=== PATIENT | female | born 1995 | race Caucasian/White ===

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

== ENCOUNTER 2020-09-06 22:55 | Emergency (ER) | payer OTHER ==
[~2020-09-06] VITALS: Ht 170.2 cm; Wt 74.5 kg
[~2020-09-06 22:55] MED LIST: QUET100T PO
[2020-09-07] MEDS ORDERED: AZITHROMYCIN 500 MG TABLET PO ONE (00:30)
[2020-09-07 00:46] VITALS: BP 132/88
== END 2020-09-07 00:47 | disposition home or self-care (01) ==
LOC: EMS 22:59
DX: N89.8 Other specified noninflammatory disorders of vagina (principal); F17.210 Nicotine dependence, cigarettes, uncomplicated; F11.90 Opioid use, unspecified, uncomplicated
CPT/HCPCS: 87210; 87491; 87591; 99284; A9575; Z7502